=== PATIENT | male | born 1965 | race Caucasian/White ===

== ENCOUNTER 2017-04-13 10:37 | Emergency (ER) | payer OTHER ==
[~2017-04-13] VITALS: Ht 167.6 cm; Wt 93.0 kg
--- NOTE | ~2017-04-13 | CT2 ---
[facility] A Service of [facility] RADIOLOGY TEXT RESULTS PATIENT: JESSICA MONTEZ LOCATION: [place] : 61 UNIT #: [id number] AGE: [address]: Td Estrada MD SEX: M ORDER DR: [id number] [facility]. [place], [place] [address] [id number] MR#: [id number] Acc #: [id number] NAME: JESSICA MONTEZ : 1965 SEX: M STUDY DATE/TIME: 04/13/2017 14:56 UNIT: [facility] ROOM: STUDY DESCRIPTION: CT Abd and Pelv W Cont Attending Physician: Td Estrada M.D. Ordering Physician: Td Estrada M.D. MEDICAL IMAGING REPORT This report is preliminary unless electronic signature is present EXAM CT abdomen and pelvis with oral and IV contrast. HISTORY Left lower quadrant pain since yesterday. TECHNIQUE This CT exam was performed with one or more of the following radiation dose reduction techniques: automatic exposure control, adjustment of mA and/or kV according to patient size, and iterative reconstruction. FINDINGS CT abdomen and pelvis was performed with oral and IV contrast. CT ABDOMEN: Very small hiatal hernia. Fatty infiltration of the liver. Probable 4 mm gallstone. No gallbladder distension or wall thickening. No biliary dilatation. The spleen, pancreas, kidneys, and adrenal glands are unremarkable. No bowel dilatation. 2 cm umbilical hernia containing fat. Normal caliber abdominal aorta. No bowel dilatation. CT PELVIS: Mild pericolonic stranding in the distal descending colon in the left lower quadrant, suggesting mild focal diverticulitis. No adjacent fluid collection. Moderate underlying diverticulosis in the distal descending colon and in the adjacent sigmoid colon. No free fluid. Moderate prostatic enlargement. No bowel dilatation. The urinary bladder is normal. IMPRESSION 1. Mild focal diverticulitis distal descending colon in the left lower quadrant with mild pericolonic stranding associated with diverticulosis. No abscess. No free fluid. [facility] A Service of [facility] RADIOLOGY TEXT RESULTS PATIENT: JESSICA MONTEZ LOCATION: [place] : 61 UNIT #: [id number] AGE: [address]: Td Estrada MD SEX: M ORDER DR: 2. No acute findings in the remainder of the abdomen or pelvis. 3. Fat infiltration of the liver. 4. Probable small gallstone. No gallbladder distension. 5. Moderate prostatic enlargement. Dictated by... Tobias Martinez M.D. THIS IS AN ELECTRONICALLY VERIFIED REPORT Tobias Martinez M.D. at 04/14/2017 4:05 PM KHUSHI/mili TD: 04/13/2017 23:19 JOB #: [id number] MEDICAL IMAGING REPORT Page 1 of 1 COPY
[~2017-04-13 10:37] MED LIST: FLOMAX0.4 M1 PO; NAPROXEN PO; PHENERGAN PO; PHENERGAN PR; VICODIN 5/1 TAB 5/50 PO
[2017-04-13 12:01] LABS: BASOPHIL# 0.1 X10e3 (0-0.3); BASOPHIL% 0.6 % (0-2.5); EOSINOPHIL# 0.1 X10e3 (0-0.7); EOSINOPHIL% 1.1 % (0.0-7.0); HEMATOCRIT 46.2 % (38.0-50.0); HEMOGLOBIN 15.4 gm/dL (13.0-16.0); LYMPHOCYTE# 2.5 X10e3 (1.0-3.5); LYMPHOCYTE% 27.3 % (17.0-45.0); MEAN CELL VOLUME 93.1 FL (83-96); MEAN CORPUSCULAR HGB CONC 33.3 g/dL (30-36); MEAN PLATELET VOLUME 7.8 FL (6.5-11.5); MONOCYTE# 0.8 X10e3 (0-1.0); MONOCYTE% 8.7 % (3.0-12.0); NEUTROPHIL# 5.8 X10e3 (1.5-7.1); NEUTROPHIL% 62.3 % (40-75); PLATELET COUNT 277 X10e3 (140-420); RED BLOOD COUNT 4.97 X10e (3.90-5.60); RED CELL DISTRIBUTION WIDTH 13.3 % (11.0-15.5); WHITE BLOOD COUNT 9.2 X10e3 (4.0-10.5)
[2017-04-13 12:04] LABS: DIFF IND NO
[2017-04-13 12:24] LABS: ALBUMIN SERUM 4.3 g/dL (3.5-5.0); BILIRUBIN, DIRECT 0.2 mg/dL (0.0-0.2); BILIRUBIN,INDIRECT 0.4 mg/dL (0.0-0.9); BILIRUBIN,TOTAL 0.6 mg/dL (0.2-2.0); CREATININE SERUM 1.2 mg/dL (0.6-1.4); GLOM FILT RATE Estimated 68.2 mL/min (>60); POTASSIUM 4.7 mmol/L (3.5-5.1); PROTEIN TOTAL SERUM 7.8 g/dL (6.0-8.3)
[2017-04-13 12:54] LABS: URINE SOURCE CLEAN CATCH
[2017-04-13 13:03] LABS: URINE APPEARANCE CLEAR; URINE BILIRUBIN NEG (NEG); URINE BLOOD NEG (NEG); URINE COLOR YELLOW; URINE GLUCOSE NEG (NEG); URINE KETONE NEG (NEG); URINE LEUKOCYTE ESTERASE NEG (NEG); URINE NITRATE NEG (NEG); URINE PH 5.5 (5-8); URINE PROTEIN NEG (NEG); URINE SPECIFIC GRAVITY 1.024 (1.003-1.035)
[2017-04-13 13:19] LABS: CULTURE INDICATED? NO
== END 2017-04-13 15:38 | disposition home or self-care (01) ==
LOC: CED 10:37
DX: K57.32 Diverticulitis of large intestine without perforation or abscess without bleeding (principal); K21.9 Gastro-esophageal reflux disease without esophagitis; I10 Essential (primary) hypertension
CPT/HCPCS: 36415; 74177; 80048; 80076; 81003; 83690; 85025; 96361; 96374; 96375; 99284; J2270; J2405; Q9967